=== PATIENT | female | born 1955 | race African-American/Black ===

== ENCOUNTER 2020-08-14 19:12 | Emergency (ER) | payer MEDICARE, MEDICAID ==
[~2020-08-14] VITALS: Ht 162.6 cm; Wt 61.0 kg
[~2020-08-14 19:12] MED LIST: ACET-3161 PO; ASPI-1497 PO; CYCL5TAB PO; HYDR25TA PO; METF-416 PO; OMEP20CA14 PO; RANI150T7 PO
[2020-08-14] MEDS ORDERED: SODIUM CHLORIDE 0.9% 1,000 ML IV ONE (20:15)
[2020-08-14] MEDS ORDERED: MAGNESIUM/ALUMINUM HYDROXIDE/SIMETHICONE 30ML UDC PO ONE (20:45)
[2020-08-14] MEDS ORDERED: ONDANSETRON HCL 4MG/2ML INJ IV ONE (20:45)
[2020-08-14] MEDS ORDERED: FAMOTIDINE 20MG/2ML VIAL IV SCH (20:45)
[2020-08-14 21:34] LABS: EOSINOPHILS % 10.5 % (0.0-5.0); HEMATOCRIT. 39.8 % (36.0-48.0); HEMOGLOBIN. 13.7 g/dL (12.0-16.0); LYMPHOCYTES % 26.9 % (20.0-50.0); MEAN CORPUSCULAR HEMOGLOBIN 30.6 pg (28.0-32.0); MEAN CORPUSCULAR VOLUME 88.7 fL (81.0-99.0); MEAN PLATELET VOLUME 8.2 fl (7.4-10.4); MONOCYTES % 5.7 % (2.0-8.0); NEUTROPHILS % 55.9 % (40.0-76.0); PLATELET 232 x1000/uL (130-400); RED BLOOD CELL COUNT 4.49 mill/uL (4.2-5.4); RED CELL DISTRIBUTION WIDTH 12.5 % (11.6-14.6)
[2020-08-14 21:39] LABS: CHLORIDE 105 mEq/L (98-107)
[2020-08-14 21:42] LABS: PROTHROMBIN TIME 11.1 sec (9.6-11.0)
[2020-08-14 21:43] LABS: ETHANOL BLOOD < 10 mg/dL
[2020-08-14] MEDS ORDERED: SUCR1TAB30 MT (22:15)
[2020-08-14] MEDS ORDERED: ONDA4TAB5 MT (22:15)
[2020-08-14] MEDS ORDERED: FAMO-135 MT (22:33)
[2020-08-14 22:49] VITALS: BP 155/72
== END 2020-08-14 22:52 | disposition home or self-care (01) ==
LOC: ER 19:12
DX: R10.13 Epigastric pain (principal); N20.0 Calculus of kidney; I10 Essential (primary) hypertension; E11.9 Type 2 diabetes mellitus without complications; Z13.9 Encounter for screening, unspecified; Z79.899 Other long term (current) drug therapy; Z90.710 Acquired absence of both cervix and uterus
CPT/HCPCS: 36415; 74176; 76705; 80053; 80320; 83605; 83690; 85025; 85610; 96361; 96374; 96375; 99285; J2405; J3490; J7030; G0480